=== PATIENT | female | born 1990 | race Hispanic/Latino ===

== ENCOUNTER 2019-06-12 08:39 | Outpatient (CLI) | payer OTHER ==
--- NOTE | 2019-06-12 10:19 | ULT ---
Pelvic ultrasound: 06/12/2019 COMPARISON: None HISTORY: Irregular pelvic/vaginal bleeding TECHNIQUE: Multiplanar grayscale sonographic imaging of the pelvis obtained with transabdominal and e ndovaginal imaging. The ovaries are assessed with color flow and spectral analysis FINDINGS: Uterus measures 12.4 x 4.1 x 5.1 cm. Endometrial stripe is approximately 1.3 cm in thicknes s, within normal limits in a premenopausal female. Right ovary measures 3.3 x 2.6 x 1.9 cm and left ovary measures 2.7 x 2.0 x 1.6 cm. There is a cyst within the right ovary measuring 1.5 x 1.4 x 1.4 cm. No ovarian or adnexal mass seen on the left. The ovaries demonstrate normal blood flow. No free pelvic fluid. IMPRESSION: Endometrial thickness is 1.3 cm. 1.5 cm cyst within right ovary.
== END 2019-06-12 08:40 | disposition home or self-care (01) ==
LOC: BICULT 08:39
DX: N93.9 Abnormal uterine and vaginal bleeding, unspecified (principal); R93.89 Abnormal findings on diagnostic imaging of other specified body structures; N83.201 Unspecified ovarian cyst, right side
CPT/HCPCS: 76856

== ENCOUNTER 2019-07-28 16:07 | Emergency (ER) | payer OTHER, SELFPAY ==
[2019-07-28] MEDS ORDERED: HYDROcodone/Acetaminophen 10/325 mg Tablet ONE (16:19)
--- NOTE | 2019-07-28 16:52 | RAD ---
RADIOGRAPH LEFT HIP 2 VIEWS: 07/28/19 HISTORY: 29-year-old female status post acute traumatic injury to the left hip due to fall down stairs. FINDINGS: There is no fracture, dislocation, or any other osseous abnormality. IMPRESSION: Normal. POS: [facility]
--- NOTE | 2019-07-28 16:52 | RAD ---
Exam: XR Ankle Lt 3 View STANDARD HISTORY: Patient fell down stairs. Injury to left ankle. COMPARISON: None FINDINGS: There is prominent subcutaneous soft tissue swelling seen at the lateral and anterior aspect of the l eft ankle. Tiny plantar calcaneal enthesophyte is seen. No acute fracture, dislocation, or other acute osseous abnormality is identified. IMPRESSION: Subcutaneous soft tissue swelling without evidence of an acute osseous abnormality.
--- NOTE | 2019-07-28 16:52 | RAD ---
RADIOGRAPH LEFT KNEE 4 VIEWS: 07/28/19 HISTORY: 29-year-old female status post acute traumatic injury to the left knee from fall. FINDINGS: There is no joint effusion. No fracture, dislocation, or any other osseous abnormality. IMPRESSION: Normal. POS: [facility]
== END 2019-07-28 17:15 | disposition home or self-care (01) ==
LOC: ERS 16:07
DX: S93.402A Sprain of unspecified ligament of left ankle, initial encounter (principal); S70.02XA Contusion of left hip, initial encounter; S80.02XA Contusion of left knee, initial encounter; W01.0XXA Fall on same level from slipping, tripping and stumbling without subsequent striking against object, initial encounter